=== PATIENT | female | born 1995 | race Two or more races ===

== ENCOUNTER 2016-09-20 23:02 | Emergency (ER) | payer OTHER ==
[2016-09-20 23:20] VITALS: BP 136/84; PULSE 82; TEMP 97.9; BMI 34.1
--- NOTE | 2016-09-20 23:38 | PDOC ---
[id number] No Limitations - History of Present Illness Initial Comments: 09/20/16 23:56 The patient is a 21 year old female, A0, with a significant past medical history of asthma, cholelithiasis, anemia, and fatty liver infiltrates, who presents to the emergency department with RUQ abdominal pain and nausea for a few days. The patient describes the abdominal pain as constant and localized to right upper quadrants and radiated to her chest. She also notes that over the past couple of days she has not been "feeling herself" and has been feeling lightheaded, as if she's going to pass out, and her feet hurt a lot. She notes that her LMP was 08/20. She reports having the flu in 07/2016. She denies shortness of breath, headache and dizziness. She denies fever, chills , diarrhea and constipation. She denies dysuria, frequency, urgency and hematuria. FMH: liver problems Allergies: NKA Social hx: smoker (2 cigarettes a day) PSH: , cholecystectomy (03/2016) PCP - Dr. Nathaniel Montes ACADEMIC SUPPORT DIRECTOR - Dr. Pollock <Edie Shelton - Last Filed: 09/21/16 00:39> <Mary Rodriges - Last Filed: 09/21/16 02:27> - General Chief Complaint: Pain Stated Complaint: RT SIDE ABD PAIN/LOWER BACK PAIN Time Seen by Provider: 09/20/16 23:38 Past History <Edie Shelton - Last Filed: 09/21/16 00:39> - Past Medical History Asthma: Yes (last attack summer 2014) Cancer: No Cardiac Disorders: No Diabetes: No HTN: No Liver Disease: Yes Seizures: No Thyroid Disease: No - Surgical History Cholecystectomy: Yes - Reproductive History (#): 2 Para: 1 Cervical CA: No Dysfunctional Uterine Bleeding: No Ectopic : No Endometrial CA: No Polycystic Ovaries: No Therapeutic (s) & number: No Tubal Ligation: No Spontaneous : 0 - Immunization History Immunization Up to Date: Yes - Psycho/Social/Smoking Cessation Hx Anxiety: No Suicidal Ideation: No Smoking History: Current some day smoker Have you smoked in the past 12 months: Yes Number of Cigarettes Smoked Daily: 5 Information on smoking cessation initiated: No Hx Alcohol Use: No Drug/Substance Use Hx: No Substance Use Type: None Hx Substance Use Treatment: No <Mary Rodriges - Last Filed: 09/21/16 02:27> - Past Medical History Allergies/Adverse Reactions: Allergies Allergy/AdvReac Type Severity Reaction Status Date / Time No Known Allergies Allergy Verified 09/20/16 23:17 Home Medications: Ambulatory Orders NK [No Known Home Medication] 09/20/16 Abd/GI Specific PMHX - Complaint Specific PMHX Colitis: No Diverticulitis: No Gall Bladder Disease: No GERD: No Hepatitis: No Irritable Bowel Synd (IBS): No Pancreatitis: No GI Ulcer Disease: No <Mary Rodriges - Last Filed: 09/21/16 02:27> Review of Systems - Review of Systems Able to Perform ROS?: Yes Comments:: 09/20/16 23:56 CONSTITUTIONAL: Absent: fever, chills, diaphoresis, generalized weakness, malaise, loss of appetite HEENT: Absent: rhinorrhea, nasal congestion, throat pain, throat swelling, difficulty swallowing, mouth swelling, ear pain, eye pain, visual Changes CARDIOVASCULAR: Absent: chest pain, syncope, palpitations, irregular heart rate, lightheadedness , peripheral edema RESPIRATORY: Absent: cough, shortness of breath, dyspnea with exertion, orthopnea, wheezing, stridor, hemoptysis GASTROINTESTINAL: PresentL abdominal pain, nausea Absent: abdominal distension, vomiting, diarrhea, constipation, melena, hematochezia GENITOURINARY: Absent: dysuria, frequency, urgency, hesitancy, hematuria, flank pain, genital pain MUSCULOSKELETAL: Absent: myalgia, arthralgia, joint swelling SKIN: Absent: rash, itching, pallor HEMATOLOGIC/IMMUNOLOGIC: Absent: easy bleeding, easy bruising, lymphadenopathy, frequent infections ENDOCRINE: Absent: unexplained weight gain, unexplained weight loss, heat intolerance, cold intolerance NEUROLOGIC: Absent: headache, focal weakness or paresthesias, dizziness, unsteady gait, seizure, mental status changes, bladder or bowel incontinence PSYCHIATRIC: Absent: anxiety, depression, suicidal or homicidal ideation, hallucinations. <Edie Shelton - Last Filed: 09/21/16 00:39> *Physical Exam - Vital Signs Last Vital Signs Temp Pulse Resp BP Pulse Ox 97.9 F 82 14 136/84 100 09/20/16 23:18 09/20/16 23:18 09/20/16 23:18 09/20/16 23:18 09/20/16 23:18 - Physical Exam Comments: 09/20/16 23:57 GENERAL: Well developed, well nourished. Awake and alert. No acute distress. HEENT: Normocephalic, atraumatic. PERRLA, EOMI. No conjunctival pallor. Sclera are non- icteric. Moist mucous membranes. Oropharynx is clear. NECK: Supple. Full ROM. No JVD. Carotid pulses 2+ and symmetric, without bruits. No thyromegaly. No lymphadenopathy. CARDIOVASCULAR: Regular rate and rhythm. No murmurs, rubs, or gallops. Distal pulses are 2+ and symmetric. PULMONARY: No evidence of respiratory distress. Lungs clear to auscultation bilaterally. No wheezing, rales or rhonchi. ABDOMINAL: +RUQ tenderness upon palpation. No lower abdominal pain. Soft. Non-distended. No rebound or guarding. No organomegaly. Normoactive bowel sounds. MUSCULOSKELETAL Normal range of motion at all joints. No bony deformities or tenderness. No CVA tenderness. EXTREMITIES: No cyanosis. No clubbing. No edema. No calf tenderness. SKIN: Warm and dry. Normal capillary refill. No rashes. No jaundice. NEUROLOGICAL: Alert, awake, appropriate. Cranial nerves 2-12 intact. No deficits to light touch and temperature in face, upper extremities and lower extremities. No motor deficits in the in face, upper extremities and lower extremities. Normoreflexic in the upper and lower extremities. Normal speech. Toes are down-going bilaterally. Gait is normal without ataxia. PSYCHIATRIC: Cooperative. Good eye contact. Appropriate mood and affect. <Edie Shelton - Last Filed: 09/21/16 00:39> - Vital Signs Last Vital Signs Temp Pulse Resp BP Pulse Ox 97.9 F 82 14 136/84 100 09/20/16 23:18 09/20/16 23:18 09/20/16 23:18 09/20/16 23:18 09/20/16 23:18 <Mary Rodriges - Last Filed: 09/21/16 02:27> ED Treatment Course - RADIOLOGY Radiology Studies Ordered: 09/21/16 00:39 EXAM: ULTRASOUND ABDOMEN INCOMPLETE Borderline hepatomegaly. Cholecystectomy. Unremarkable right kidney and visualized aorta and pancreas. No biliary dilatation. No visible choledocholithiasis. Reported by Julia Henao M.D. from Imaging cotton picker <Edie Shelton - Last Filed: 09/21/16 00:39> - LABORATORY CBC & Chemistry Diagram: 09/21/16 00:40 09/21/16 00:40 <Mary Rodriges - Last Filed: 09/21/16 02:27> Medical Decision Making - Medical Decision Making 09/21/16 02:25 21-year-old female who is has some right upper quadrant pain and some nausea recently. Her last menstrual period was in July. - She denied fever or chills or vomiting or diarrhea. She has no URI symptoms She had a cholecystectomy in the past My initial concern was that she had choledocholithiasis, however, ultrasound of the abdomen did not show any evidence of that. It was an unremarkable right upper quadrant ultrasound. She had negative test UA was negative LFTs were within normal limits Patient discharged home with recommendations to take Zantac or Maalox over-the- counter <Mary Rodriges - Last Filed: 09/21/16 02:27> *DC/Admit/Observation/Transfer - Attestations Scribe Attestion: 09/20/16 23:57 Documentation prepared by SONU Taylor, acting as biomedical electronics technician for Mary Rodriges MD. <Edie Shelton - Last Filed: 09/21/16 00:39> <Mary Rodriges - Last Filed: 09/21/16 02:27> Diagnosis at time of Disposition: Dyspepsia - Discharge Dispostion Disposition: HOME Condition at time of disposition: Stable - Patient Instructions Printed Discharge Instructions: DI for Epigastric Pain Additional Instructions: please followup with your regular doctor You may want to try maalox over the counter or zantac for your upper abdominal discomfort -please return for vomiting,increasing abdominal pain or fever
[2016-09-21 00:37] LABS: URINE APPEARANCE SLCLOUDY; URINE BILIRUBIN NEGATIVE (NEGATIVE); URINE BLOOD NEGATIVE (NEGATIVE); URINE COLOR STRAW; URINE GLUCOSE (UA) NEGATIVE (NEGATIVE); URINE KETONE NEGATIVE (NEGATIVE); URINE LEUK ESTERASE NEGATIVE (NEGATIVE); URINE NITRITE NEGATIVE (NEGATIVE); URINE PROTEIN NEGATIVE (NEGATIVE); URINE UROBILINOGEN NEGATIVE E.U./dl (0.2-1.0)
[2016-09-21 01:03] LABS: BASOPHIL 2.5 % (0-2.0); EOSINOPHIL 2.2 % (0-4.5); MCH 26.9 pg (25.7-33.7); MCHC 32.8 g/dl (32.0-36.0); MEAN CELL VOLUME 82.2 fl (80-96); MEAN PLT VOLUME 8.7 fl (7.5-11.1); NEUTROPHILS 38.7 % (42.8-82.8); PLATELET COUNT 261 K/MM3 (134-434); RDW 13.9 % (11.6-15.6); WHITE BLOOD COUNT 7.3 K/mm3 (4.0-10.0)
[2016-09-21 01:48] LABS: ALK PHOS 50 U/L (45-117); ANION GAP 11 (8-16); BILIRUBIN,TOTAL 0.2 mg/dL (0.2-1.0); CALCIUM 9.1 mg/dL (8.5-10.1); CO2 26 mmol/L (21-32); CREATININE 0.8 mg/dL (0.55-1.02); GLUCOSE,RANDOM 77 mg/dL (74-106); SGOT/AST 19 U/L (15-37); SGPT/ALT 28 U/L (12-78); TOT PROT 7.9 g/dl (6.4-8.2)
== END 2016-09-21 02:07 | disposition home or self-care (01) ==
LOC: JER 23:02
DX: R10.13 Epigastric pain (principal)
CPT/HCPCS: 36415; 76705-TC; 80053; 81003; 84703; 85025; 99281-25

== ENCOUNTER 2016-12-08 13:14 | Emergency (ER) | payer OTHER ==
[2016-12-08 13:24] VITALS: BP 115/70; PULSE 88; TEMP 98.2; BMI 34.3
--- NOTE | 2016-12-08 14:50 | PDOC ---
History of Present Illness - General Chief Complaint: Pain, Acute Stated Complaint: PAIN/ JOINTS, LEGS hx of DVT Time Seen by Provider: 12/08/16 14:23 History Source: Patient Exam Limitations: No Limitations - History of Present Illness Initial Comments: 12/08/16 14:47 Patient here with complaints of bilateral leg weakness. States status post gallbladder removal last summer in March had a consequence of a DVT but is uncertain which leg was to be taking some medication but is uncertain as to the name and stopped taking it over a month ago. had an appointment with her private physician but missed that appointment in August. Is a very poor historian, is uncertain as to medications she is taking, hasn't been compliant with medical exams or appointment . Denies swelling to her legs, denies any redness ,cording or exquisite tenderness although feels some mild weakness. Denies numbness or tingling to hands, no recent injury or back injury. No fevers, no recent illness, no excessive exercise changes 12/08/16 14:48 12/08/16 14:50 12/08/16 14:53 12/08/16 15:15 Timing/Duration: reports: just prior to arrival, changing over time Severity: Yes: moderate Location: reports: extremities (ilateral legs ) Respiratory Risk Factors: reports: no cause identified Associated Symptoms: denies: denies symptoms Past History - Travel Traveled outside of the country in the last 30 days: No Close contact w/someone who was outside of country & ill: No - Past Medical History Allergies/Adverse Reactions: Allergies Allergy/AdvReac Type Severity Reaction Status Date / Time No Known Allergies Allergy Verified 12/08/16 13:24 Home Medications: Ambulatory Orders Naproxen Sodium [Flanax] 440 mg PO Q8H PRN #30 tablet 12/08/16 Asthma: Yes (last attack summer 2014) Cancer: No Cardiac Disorders: No Diabetes: No HTN: No Liver Disease: Yes Seizures: No Thyroid Disease: No Other medical history: possible dvt in past - Surgical History Cholecystectomy: Yes - Reproductive History (#): 2 Para: 1 Cervical CA: No Dysfunctional Uterine Bleeding: No Ectopic : No Endometrial CA: No Polycystic Ovaries: No Therapeutic (s) & number: No Tubal Ligation: No Spontaneous : 0 - Immunization History Immunization Up to Date: Yes - Psycho/Social/Smoking Cessation Hx Anxiety: No Suicidal Ideation: No Smoking History: Never smoked Have you smoked in the past 12 months: Yes Number of Cigarettes Smoked Daily: 5 Information on smoking cessation initiated: No Hx Alcohol Use: No Drug/Substance Use Hx: No Substance Use Type: None Hx Substance Use Treatment: No Review of Systems - Review of Systems Able to Perform ROS?: Yes Is the patient limited Occitan proficient: Yes Constitutional: Yes: Symptoms Reported, See HPI, Chills, Malaise. No: Fever, Weakness HEENTM: Yes: See HPI. No: Symptoms Reported, Eye Pain Respiratory: Yes: See HPI. No: Symptoms reported, Cough, Shortness of Breath Musculoskeletal: Yes: Symptoms Reported, See HPI, Joint Swelling Integumentary: Yes: See HPI. No: Symptoms Reported, Bruising Neurological: Yes: Symptoms reported All Other Systems: Reviewed and Negative *Physical Exam - Vital Signs Last Vital Signs Temp Pulse Resp BP Pulse Ox 98.2 F 88 18 115/70 99 12/08/16 13:22 12/08/16 13:22 12/08/16 13:22 12/08/16 13:22 12/08/16 13:22 - Physical Exam General Appearance: Yes: Nourished, Appropriately Dressed. No: Apparent Distress HEENT: positive: JOSE EDUARDO, Normal ENT Inspection, TMs Normal, Pharynx Normal Neck: positive: Supple. negative: Tender Respiratory/Chest: positive: Lungs Clear, Normal Breath Sounds. negative: Respiratory Distress Musculoskeletal: positive: Normal Inspection. negative: CVA Tenderness, Decreased Range of Motion, Muscle Spasm, Vertebral Tenderness Extremity: positive: Normal Capillary Refill, Normal Range of Motion, Other ( ambulatory without limp or unsteadiness). negative: Delayed Capillary Refill, Pedal Edema, Swelling, Calf Tenderness, Erythema, Inflammation Integumentary: positive: Normal Color, Ecchymosis. negative: Pale Neurologic: positive: swimmer II-XII NML intact, Fully Oriented, Alert, Normal Mood/ Affect, Normal Response, Motor Strength 12/31 Medical Decision Making - Medical Decision Making 12/08/16 15:40 Leg pain and general malaise. Encourage patient to follow-up with PMD sooner than December 31 for thorough physical evaluation. Return to emergency department for swelling, redness, tenderness or, worsen pain in legs *DC/Admit/Observation/Transfer Diagnosis at time of Disposition: Leg pain Qualifiers: Laterality: bilateral Qualified Code(s): M79.604 - Pain in right leg - Discharge Dispostion Disposition: HOME Condition at time of disposition: Stable Admit: No - Prescriptions Prescriptions: Naproxen Sodium [Flanax] 440 mg PO Q8H PRN #30 tablet PRN Reason: Pain - Referrals Referrals: Grecia Bhardwaj MD [Primary Care Provider] - - Patient Instructions Printed Discharge Instructions: DI for Leg Pain Additional Instructions: Rest, ice to area on and off for 15 minutes 4-6 times a day Avoid heavy lifting or exercise until pain and swelling is resolved or until further directed Keep area highly elevated to reduce swelling Followup with orthopedist in one to 2 days if not improving, if significantly improved may wait one week for followup with orthopedist May use ibuprofen 2-200 mg tablets every 6 hours as needed for pain/ or Naprosyn 220mg- 2 tabs every 8 hours as needed Patient to keep appointment with PMD for thorough physical evaluation with possible inclusion of lab evaluation/checking for arthritic problems.
== END 2016-12-08 15:48 | disposition home or self-care (01) ==
LOC: JERFT 13:14
DX: M62.81 Muscle weakness (generalized) (principal); R53.81 Other malaise; M79.604 Pain in right leg; M79.605 Pain in left leg
CPT/HCPCS: 84703; 99281-25

== ENCOUNTER 2016-12-13 01:32 | Emergency (ER) | payer OTHER ==
[2016-12-13 01:48] VITALS: BP 144/91; PULSE 92; TEMP 98.8; BMI 34.3
[2016-12-13 02:11] LABS: URINE APPEARANCE CLEAR; URINE BILIRUBIN NEGATIVE (NEGATIVE); URINE BLOOD NEGATIVE (NEGATIVE); URINE COLOR LTYELLOW; URINE GLUCOSE (UA) NEGATIVE (NEGATIVE); URINE KETONE NEGATIVE (NEGATIVE); URINE LEUK ESTERASE NEGATIVE (NEGATIVE); URINE NITRITE NEGATIVE (NEGATIVE); URINE PROTEIN NEGATIVE (NEGATIVE); URINE UROBILINOGEN NEGATIVE E.U./dl (0.2-1.0)
[2016-12-13 02:21] LABS: BASOPHIL 0.4 % (0-2.0); EOSINOPHIL 2.3 % (0-4.5); MCH 26.8 pg (25.7-33.7); MCHC 32.7 g/dl (32.0-36.0); MEAN CELL VOLUME 81.9 fl (80-96); MEAN PLT VOLUME 8.4 fl (7.5-11.1); NEUTROPHILS 50.3 % (42.8-82.8); PLATELET COUNT 237 K/MM3 (134-434); RDW 13.5 % (11.6-15.6); WHITE BLOOD COUNT 7.4 K/mm3 (4.0-10.0)
--- NOTE | 2016-12-13 02:29 | PDOC ---
History of Present Illness - General History Source: Patient Exam Limitations: No Limitations - History of Present Illness Initial Comments: 12/13/16 02:42 The patient is a 21 year old female, A0, with a significant past medical history of asthma, cholelithiasis, anemia, and fatty liver infiltrates, who presents to the emergency department with RLQ abdominal pain and nausea. She denies any vomiting. She states that she never experienced this before. Patient states that her last bowel movement was this AM. She reports dysuria. She denies shortness of breath, headache and dizziness. She denies fever, chills , diarrhea, hematochezia and constipation. She denies frequency, urgency and hematuria. FMH: liver problems Allergy: NKA SH: smoker (2 cigarettes a day) PSH: , cholecystectomy (03/2016) PCP - Dr. Nathaniel Montes LLAMA FARMER - Dr. Pollock <Edie Shelton - Last Filed: 12/13/16 04:48> <Tiarra Mendez - Last Filed: 12/13/16 05:24> - General Chief Complaint: Pain, Acute Stated Complaint: RT SIDE ABD PAIN Time Seen by Provider: 12/13/16 01:36 Past History <Edie Shelton - Last Filed: 12/13/16 04:48> - Past Medical History Asthma: Yes (last attack summer 2014) Cancer: No Cardiac Disorders: No Diabetes: No HTN: No Liver Disease: Yes Seizures: No Thyroid Disease: No - Surgical History Cholecystectomy: Yes - Reproductive History (#): 2 Para: 1 Cervical CA: No Dysfunctional Uterine Bleeding: No Ectopic : No Endometrial CA: No Polycystic Ovaries: No Therapeutic (s) & number: No Tubal Ligation: No Spontaneous : 0 - Immunization History Immunization Up to Date: Yes - Psycho/Social/Smoking Cessation Hx Anxiety: No Suicidal Ideation: No Smoking History: Never smoked Have you smoked in the past 12 months: No Number of Cigarettes Smoked Daily: 5 Information on smoking cessation initiated: No Hx Alcohol Use: No Drug/Substance Use Hx: No Substance Use Type: None Hx Substance Use Treatment: No <Tiarra Mendez - Last Filed: 12/13/16 05:24> - Past Medical History Allergies/Adverse Reactions: Allergies Allergy/AdvReac Type Severity Reaction Status Date / Time No Known Allergies Allergy Verified 12/13/16 01:45 Home Medications: Ambulatory Orders NK [No Known Home Medication] 12/13/16 Review of Systems - Review of Systems Able to Perform ROS?: Yes Comments:: 12/13/16 02:42 GENERAL/CONSTITUTIONAL: No fever or chills. No weakness. HEAD, EYES, EARS, NOSE AND THROAT: No change in vision. No ear pain or discharge. No sore throat. CARDIOVASCULAR: No chest pain or shortness of breath. RESPIRATORY: No cough, wheezing, or hemoptysis. GASTROINTESTINAL: +nausea, +RLQ pain. No vomiting, diarrhea or constipation. GENITOURINARY: No dysuria, frequency, or change in urination. MUSCULOSKELETAL: No joint or muscle swelling or pain. No neck or back pain. SKIN: No rash NEUROLOGIC: No headache, vertigo, loss of consciousness, or change in strength/ sensation. ENDOCRINE: No increased thirst. No abnormal weight change. HEMATOLOGIC/LYMPHATIC: No anemia, easy bleeding, or history of blood clots. ALLERGIC/IMMUNOLOGIC: No hives or skin allergy. <Edie Shelton - Last Filed: 12/13/16 04:48> *Physical Exam - Vital Signs Last Vital Signs Temp Pulse Resp BP Pulse Ox 98.8 F 92 H 20 144/91 100 12/13/16 01:46 12/13/16 01:46 12/13/16 01:46 12/13/16 01:46 12/13/16 01:46 - Physical Exam Comments: 12/13/16 02:43 GENERAL: Awake, alert, and fully oriented, in no acute distress HEAD: No signs of trauma EYES: PERRLA, EOMI, sclera anicteric, conjunctiva clear ENT: Auricles normal inspection, hearing grossly normal, nares patent, oropharynx clear without exudates. Moist mucosa NECK: Normal ROM, supple, no lymphadenopathy, JVD, or masses LUNGS: Breath sounds equal, clear to auscultation bilaterally. No wheezes, and no crackles HEART: Regular rate and rhythm, normal S1 and S2, no murmurs, rubs or gallops ABDOMEN: +obese, +RLQ tenderness upon deep palpation, +gassy abdomen. Soft, normoactive bowel sounds. No guarding, no rebound. No masses EXTREMITIES: Normal range of motion, no edema. No clubbing or cyanosis. No cords, erythema, or tenderness NEUROLOGICAL: Cranial nerves II through XII grossly intact. Normal speech, normal gait SKIN: Warm, Dry, normal turgor, no rashes or lesions noted. <Edie Shelton - Last Filed: 12/13/16 04:48> - Vital Signs Last Vital Signs Temp Pulse Resp BP Pulse Ox 98.8 F 92 H 20 144/91 100 12/13/16 01:46 12/13/16 01:46 12/13/16 01:46 12/13/16 01:46 12/13/16 01:46 <Tiarra Mendez - Last Filed: 12/13/16 05:24> ED Treatment Course - LABORATORY CBC & Chemistry Diagram: 12/13/16 02:00 12/13/16 02:00 - ADDITIONAL ORDERS Additional order review: Laboratory Results 12/13/16 01:50 Urine Color Ltyellow Urine Appearance Clear Urine pH 6.0 Ur Specific [place] 1.021 Urine Protein Negative Urine Glucose (UA) Negative Urine Ketones Negative Urine Blood Negative Urine Nitrite Negative Urine Bilirubin Negative Urine Urobilinogen Negative Ur Leukocyte Esterase Negative Urine HCG, Qual Negative 12/13/16 02:00 RBC 4.58 MCV 81.9 MCHC 32.7 RDW 13.5 MPV 8.4 Neutrophils % 50.3 D Lymphocytes % 41.2 H D Monocytes % 5.8 Eosinophils % 2.3 Basophils % 0.4 - RADIOLOGY Radiology Studies Ordered: 12/13/16 04:49 THIS IS A PRELIMINARYREPORT FROM IMAGING DAY CARE SUPERVISOR EXAM: CT abdomen and pelvis without contrast FINDINGS: Lung bases are clear. The visualized cardiac chambers are normal size and configuration. Status post cholecystectomy the biliary duct dilation. Normal liver, gallbladder, pancreas, spleen, adrenal glands and kidneys. The stomach and abdominal small and large bowel are normal. There is no aortic aneurysm. There is no significant retroperitoneal lymphadenopathy. The pelvic small and large bowel are normal. The appendix is normal. The uterus and adnexal structures are normal. Urinary bladder is unremarkable. There is no significant pelvic free fluid. No discrete pelvic lymphadenopathy is identified. No evidence of acute pathology. IMPRESSION: No localizing signs for acute pathology. THIS DOCUMENT HAS BEEN ELECTRONICALLY SIGNED Steven Orona MD <Edie Shelton - Last Filed: 12/13/16 04:48> - LABORATORY CBC & Chemistry Diagram: 12/13/16 02:00 12/13/16 02:00 - ADDITIONAL ORDERS Additional order review: Laboratory Results 12/13/16 01:50 Urine Color Ltyellow Urine Appearance Clear Urine pH 6.0 Ur Specific [place] 1.021 Urine Protein Negative Urine Glucose (UA) Negative Urine Ketones Negative Urine Blood Negative Urine Nitrite Negative Urine Bilirubin Negative Urine Urobilinogen Negative Ur Leukocyte Esterase Negative Urine HCG, Qual Negative <Tiarra Mendez - Last Filed: 12/13/16 05:24> Medical Decision Making - Medical Decision Making 12/13/16 02:33 Pt comes with diffuse lower abdominal pain. She has dysuria. Pt is not and she has normal UA. SHe has pain with palpation of her periumbilical area, LLQ and RLQ. She ate today and had a BM today. She has surgical hx significant for cholecystectomy only. She has no fever . SHe is very gassy. I will do a CT scan to r/o appendicitis. Pt is obese. Pt has a normal CBC. 12/13/16 05:07 Patient Name: Wendy Carson THIS IS A PRELIMINARYREPORT FROM IMAGING DAY CARE SUPERVISOR EXAM: CT abdomen and pelvis without contrast IMAGES: [id number] INDICATION: Rule out ileus, bowel obstruction or appendicitis. DATE OF SERVICE: 2016-12-13 04:00: 41.0 COMPARISON: none FINDINGS: Lung bases are clear. The visualized cardiac chambers are normal size and configuration. Status post cholecystectomy the biliary duct dilation. Normal liver, gallbladder, pancreas, spleen, adrenal glands and kidneys. The stomach and abdominal small and large bowel are normal. There is no aortic aneurysm. There is no significant retroperitoneal lymphadenopathy. The pelvic small and large bowel are normal. The appendix is normal. The uterus and adnexal structures are normal. Urinary bladder is unremarkable. There is no significant pelvic free fluid. No discrete pelvic lymphadenopathy is identified. No evidence of acute pathology. IMPRESSION: No localizing signs for acute pathology. THIS DOCUMENT HAS BEEN ELECTRONICALLY SIGNED Pt has gas and constipation. We will treat with pepcid and maalox. Pt will be advised to eat healthier. 12/13/16 05:14 Pt comes with extreme abd pain after eating rice beans icecream and juice. SHe sounds gassy, but she is writhing in pain. States that she had a normal BM today in the AM. Labs normal; CT no appendicitis or obstruction. Pt is obese. SHe is making poor dietary choices. <Tiarra Mendez - Last Filed: 12/13/16 05:24> *DC/Admit/Observation/Transfer - Attestations Scribe Attestion: 12/13/16 02:44 Documentation prepared by SONU Taylor, acting as medical reimbursement specialist for Tiarra Mendez MD. <Edie Shelton - Last Filed: 12/13/16 04:48> - Discharge Dispostion Admit: No <Tiarra Mendez - Last Filed: 12/13/16 05:24> Diagnosis at time of Disposition: Gas pain, Poor diet - Discharge Dispostion Disposition: HOME Condition at time of disposition: Stable - Referrals Referrals: Grecia Bhardwaj MD [Primary Care Provider] - - Patient Instructions Printed Discharge Instructions: DI for Dyspepsia, Eating a Diet Rich in Fruits and Vegetables, Decreasing Your Triglycerides Through Dietary Changes, The Mediterranean Diet and Good Health, Combination of Diet and Exercise May be Most Effective Weight Loss Tool for, Water Before Meals May Promote Weight Loss
[2016-12-13 02:45] LABS: ALBUMIN 3.6 g/dl (3.4-5.0); ANION GAP 9 (8-16); BILIRUBIN,TOTAL 0.3 mg/dL (0.2-1.0); CALCIUM 8.8 mg/dL (8.5-10.1); CO2 25 mmol/L (21-32); CREATININE 0.8 mg/dL (0.55-1.02); GLUCOSE,RANDOM 90 mg/dL (74-106); SGOT/AST 25 U/L (15-37); SGPT/ALT 30 U/L (12-78); TOT PROT 7.5 g/dl (6.4-8.2)
[2016-12-13 02:46] LABS: ALK PHOS 47 U/L (45-117)
[2016-12-13] MEDS ORDERED: ONDANSETRON 4 MG/2 ML VIAL IVPB ONE (03:20)
[2016-12-13] MEDS ORDERED: morphine CARPU-JECT 2 MG/1 ML DISP.SYRIN IVPUSH ONE (03:20)
[2016-12-13] MEDS ORDERED: ONDANSETRON 4 MG/2 ML VIAL ONE (03:29)
[2016-12-13] MEDS ORDERED: morphine CARPU-JECT 2 MG/1 ML DISP.SYRIN ONE (03:29)
[2016-12-13] MEDS ORDERED: METOCLOPRAMIDE HCL INJECTION 10 MG/2 ML VIAL ONE (03:52)
[2016-12-13] MEDS ORDERED: METOCLOPRAMIDE HCL INJECTION 10 MG/2 ML VIAL IVPB ONE (03:52)
[2016-12-13] MEDS ORDERED: SODIUM CHLORIDE 1,000 ML IV ONE (05:05)
[2016-12-13] MEDS ORDERED: MAG HYDROX/AL HYDROX/SIMETH 30 ML UNIT-DOSE CUP PO ONE (05:09)
[2016-12-13] MEDS ORDERED: RANITIDINE HCL 150 MG TABLET (FP) PO ONE (05:09)
[2016-12-13] MEDS ORDERED: MAG HYDROX/AL HYDROX/SIMETH 30 ML UNIT-DOSE CUP ONE (05:10)
[2016-12-13] MEDS ORDERED: RANITIDINE HCL 150 MG TABLET (FP) ONE (05:10)
== END 2016-12-13 05:21 | disposition home or self-care (01) ==
LOC: JER 01:32
PROC: 3E0337Z Introduction of Electrolytic and Water Balance Substance into Peripheral Vein, Percutaneous Approach (ICD-10-PCS; principal; 2016-12-13)
PROC: 3E033NZ Introduction of Analgesics, Hypnotics, Sedatives into Peripheral Vein, Percutaneous Approach (ICD-10-PCS; 2016-12-13)
PROC: 3E033GC Introduction of Other Therapeutic Substance into Peripheral Vein, Percutaneous Approach (ICD-10-PCS; 2016-12-13)
DX: R14.1 Gas pain (principal); R10.33 Periumbilical pain; J45.909 Unspecified asthma, uncomplicated; D64.9 Anemia, unspecified
CPT/HCPCS: 36415; 74176-TC; 80053; 81003; 84703; 85025; 87491; 87591; 99282-25

== ENCOUNTER 2017-01-26 19:08 | Emergency (ER) | payer OTHER ==
[2017-01-26 19:32] VITALS: BP 135/84; PULSE 92; TEMP 99; BMI 34.1
[2017-01-26] MEDS ORDERED: IBUPROFEN 600 MG TABLET (FP) PO ONE (21:07)
--- NOTE | 2017-01-26 21:10 | PDOC ---
History of Present Illness - General Chief Complaint: Abscess Boil Stated Complaint: ABSCESS BOIL Time Seen by Provider: 01/26/17 20:50 History Source: Patient Exam Limitations: No Limitations - History of Present Illness Initial Comments: 01/26/17 21:04 21 yr female with c/o "pimple" to her right abdomen for one week. Pt states she has fever and chills. No medical history or allergies. no history of MRSA that pt is aware of. Pt denies bite. Severity: Yes: mild Location: reports: torso (abdomen) Past History - Past Medical History Allergies/Adverse Reactions: Allergies Allergy/AdvReac Type Severity Reaction Status Date / Time No Known Allergies Allergy Verified 01/26/17 19:29 Home Medications: Ambulatory Orders Sulfamethoxazole/Trimethoprim [Bactrim Ds -] 1 tab PO BID #14 tablet 01/26/17 Asthma: Yes (last attack summer 2014) Cancer: No Cardiac Disorders: No Diabetes: No HTN: No Liver Disease: Yes Seizures: No Thyroid Disease: No - Surgical History Cholecystectomy: Yes - Reproductive History (#): 2 Para: 1 Cervical CA: No Dysfunctional Uterine Bleeding: No Ectopic : No Endometrial CA: No Polycystic Ovaries: No Therapeutic (s) & number: No Tubal Ligation: No Spontaneous : 0 - Immunization History Immunization Up to Date: Yes - Psycho/Social/Smoking Cessation Hx Anxiety: No Suicidal Ideation: No Smoking History: Never smoked Have you smoked in the past 12 months: No Number of Cigarettes Smoked Daily: 5 Information on smoking cessation initiated: No Hx Alcohol Use: No Drug/Substance Use Hx: No Substance Use Type: None Hx Substance Use Treatment: No Review of Systems - Review of Systems Able to Perform ROS?: Yes Is the patient limited Mohawk proficient: No Constitutional: No: Symptoms Reported HEENTM: No: Symptoms Reported Respiratory: No: Symptoms reported Cardiac (ROS): No: Symptoms Reported ABD/GI: No: Symptoms Reported, Abdominal cramping : No: Symptoms Reported Musculoskeletal: No: Symptoms Reported Integumentary: Yes: Symptoms Reported *Physical Exam - Vital Signs Last Vital Signs Temp Pulse Resp BP Pulse Ox 99.0 F 92 H 16 135/84 100 01/26/17 19:29 01/26/17 19:29 01/26/17 19:29 01/26/17 19:29 01/26/17 19:29 - Physical Exam General Appearance: Yes: Nourished, Appropriately Dressed HEENT: positive: EOMI, JOSE EDUARDO Musculoskeletal: positive: Normal Inspection Extremity: positive: Normal Capillary Refill Integumentary: positive: Other (right abdomen with red raised indurated area 2cm x1cm no fluctuance, scabbed center) Neurologic: positive: Fully Oriented, Alert, Normal Mood/Affect, Normal Response , Motor Strength 5/5 Medical Decision Making - Medical Decision Making 01/26/17 21:06 cc: pimple to abd for one week fever, chills no vomiting took no meds today area is indurated no fluctuance with scabbed center will give motrin dc with bactrim warm moist compresses 01/26/17 21:11 *DC/Admit/Observation/Transfer Diagnosis at time of Disposition: Abscess - Prescriptions Prescriptions: Sulfamethoxazole/Trimethoprim [Bactrim Ds -] 1 tab PO BID #14 tablet - Referrals Referrals: Grecia Bhardwaj MD [Primary Care Provider] - - Patient Instructions Additional Instructions: frequent warm moist compresses to the area of swelling every 3-4hrs for 20 minutes take the antibiotic as prescribed follow with your doctor if no improvement or worse in 48hrs return to ER for any worsening symptoms
[2017-01-26] MEDS ORDERED: IBUPROFEN 400 MG TABLET (FP) PO ONE (21:13)
== END 2017-01-26 21:25 | disposition home or self-care (01) ==
LOC: JERFT 19:08
DX: L02.211 Cutaneous abscess of abdominal wall (principal)
CPT/HCPCS: 99281-25

== ENCOUNTER 2017-02-04 18:55 | Emergency (ER) | payer OTHER ==
[2017-02-04 19:05] VITALS: BP 113/74; PULSE 96; TEMP 98.6; BMI 33.1
--- NOTE | 2017-02-04 19:57 | PDOC ---
History of Present Illness - General Chief Complaint: Revisit,Wound Recheck Stated Complaint: WOUND INFECTION Time Seen by Provider: 02/04/17 19:35 History Source: Patient Exam Limitations: No Limitations - History of Present Illness Initial Comments: 02/04/17 19:52 21-year-old female sent in for evaluation of wound check after completion of antibiotics. Patient states has been seen here for abscess to the right upper quadrant and she was placed on Bactrim. Patient states mild itching discomfort to the wound but denies any radiation of pain, fever, chills, chest pain or shortness of breath. Patient also denies redness, increased drainage, or increased warmth. Timing/Duration: other Severity: mild Associated Symptoms: reports: denies symptoms Past History - Past Medical History Allergies/Adverse Reactions: Allergies Allergy/AdvReac Type Severity Reaction Status Date / Time No Known Allergies Allergy Verified 02/04/17 19:03 Home Medications: Ambulatory Orders Sulfamethoxazole/Trimethoprim [Bactrim Ds -] 1 tab PO BID #14 tablet 01/26/17 Asthma: Yes Cancer: No Cardiac Disorders: No Diabetes: No HTN: No Liver Disease: Yes Seizures: No Thyroid Disease: No - Surgical History Abdominal Surgery: Yes Cholecystectomy: Yes - Reproductive History LMP Normal: Yes Is Patient Now?: No (#): 2 Para: 1 Cervical CA: No Dysfunctional Uterine Bleeding: No Ectopic : No Endometrial CA: No Polycystic Ovaries: No Therapeutic (s) & number: No Tubal Ligation: No Spontaneous : 0 - Immunization History Immunization Up to Date: Yes - Psycho/Social/Smoking Cessation Hx Anxiety: No Suicidal Ideation: No Smoking History: Never smoked Have you smoked in the past 12 months: No Number of Cigarettes Smoked Daily: 5 Hx Alcohol Use: No Drug/Substance Use Hx: No Substance Use Type: None Hx Substance Use Treatment: No Patient Lives Alone: No Lives with/in: spouse/SO Review of Systems - Review of Systems Able to Perform ROS?: Yes Constitutional: No: Symptoms Reported Respiratory: No: Symptoms reported Cardiac (ROS): No: Symptoms Reported ABD/GI: No: Symptoms Reported, Nausea Integumentary: Yes: See HPI *Physical Exam - Vital Signs Last Vital Signs Temp Pulse Resp BP Pulse Ox 98.6 F 96 H 18 113/74 99 02/04/17 19:03 02/04/17 19:03 02/04/17 19:03 02/04/17 19:03 02/04/17 19:03 - Physical Exam General Appearance: Yes: Nourished, Appropriately Dressed. No: Apparent Distress Respiratory/Chest: positive: Chest Tender, Lungs Clear, Normal Breath Sounds. negative: Respiratory Distress, Accessory Muscle Use Cardiovascular: positive: Regular Rhythm, Regular Rate. negative: Murmur Gastrointestinal/Abdominal: positive: Soft. negative: Tenderness Extremity: positive: Normal Capillary Refill Integumentary: positive: Normal Color, Warm, Moist, Other ( noted 0.25 cm pink epitheal open wound to RUQ. Surrounding skin intact. No increased warmth to area ) Neurologic: positive: Motor Strength 5/5 (ambulatory) Medical Decision Making - Medical Decision Making 02/04/17 19:55 Patient here for wound check. Patient states completed Bactrim. Patient has no other complaints except for mild itching discomfort to the area. Patient states has dressing changes at home and recommended to use normal saline to cleanse area versus alcohol wipes secondary to mild irritation from the tape. *DC/Admit/Observation/Transfer Diagnosis at time of Disposition: Visit for wound check - Discharge Dispostion Disposition: HOME Condition at time of disposition: Stable - Referrals Referrals: Grecia Bhardwaj MD [Primary Care Provider] - - Patient Instructions Printed Discharge Instructions: DI for Wound Infection Additional Instructions: Please continue to cleanse wound using sterile water and apply bacitracin with dry sterile dressing. Please change location of take placement secondary to skin irritation. If symptoms of infection such as redness swelling and drainage increase or return please return to the ED.
--- NOTE | 2017-02-08 10:56 | EKG ---
Test Reason : Blood Pressure : / mmHG Vent. Rate : 090 BPM Atrial Rate : 090 BPM P-R Int : 152 ms QRS Dur : 082 ms QT Int : 348 ms P-R-T Axes : 065 078 039 degrees QTc Int : 425 ms NORMAL SINUS RHYTHM POSSIBLE LEFT ATRIAL ENLARGEMENT BORDERLINE ECG WHEN COMPARED WITH ECG OF 11-SEP-2015 08:59, NO SIGNIFICANT CHANGE WAS FOUND Confirmed by LEANDRO BRASHER MD ([id number]) on 02/08/2017 10:56:27 AM Referred By: RADHA Confirmed By:LEANDRO BRASHER MD
== END 2017-02-04 20:09 | disposition home or self-care (01) ==
LOC: JERFT 18:55
DX: Z48.02 Encounter for removal of sutures (principal)
CPT/HCPCS: 93005; 93010; 99281-25

== ENCOUNTER 2017-02-22 07:13 | Emergency (ER) | payer OTHER ==
[2017-02-22 07:32] VITALS: BP 135/81; PULSE 88; TEMP 98.8; BMI 33.3
--- NOTE | 2017-02-22 07:38 | PDOC ---
History of Present Illness - General History Source: Patient Exam Limitations: No Limitations - History of Present Illness Initial Comments: CHIEF COMPLAINT: 22 y/o afebrile female with no significant PMH c/o worsening right leg pain x 1 month. HISTORY OF PRESENT ILLNESS: The patient states for the past 1 month she's had right leg pain that has worsened. She is taking 800mg of ibuprofen once daily with little relief. She states over the past week it has gotten much worse. She states her thigh hurts and sometimes her calf. She denies fall, trauma to leg, numbness/tingling, warmth/redness/swelling to affected leg. She denies cough, hemoptysis, CP, SOB, recent travel. She admits to smoking approximately 5 cigarettes per day and had the Nexplanon control implanted in October. Vital signs on arrival are within normal limits. REVIEW OF SYSTEMS: GENERAL/CONSTITUTIONAL: No fever/chills. No weakness. No weight change. GENITOURINARY: No dysuria, frequency, or change in urination. MUSCULOSKELETAL: +right leg pain. No neck or back pain. SKIN: No rash or easy bruising. NEUROLOGIC: No headache, vertigo, loss of consciousness, or loss of sensation. PHYSICAL EXAM: VITAL_SIGNS: within normal limits GENERAL_APPEARANCE: alert, cooperative, no obvious discomfort. The patient is a morbidly obese ambulatory female with mild limp. MENTAL_STATUS: speech clear, oriented X 3, responds appropriately to questions. NEURO: motor intact and sensory intact in injured extremity. BACK: No back pain with palpation. EXTREMITIES: good pulse in injured extremity. Minimal TTP of distal anterior right thigh. Some right calf pain with palpation with negative Darnell's sign. No edema, erythema or warmth to affected extremity. No crepitus or obvious deformities. No pain with palpation of right tibial plateau. No pain with palpation of right patella or joint line. No leg length discrepancy. No right hip pain. SKIN: warm, dry, good color. <Liz Mei - Last Filed: 02/22/17 09:32> <Jenise García - Last Filed: 02/25/17 08:47> - General Chief Complaint: Pain Stated Complaint: RT LEG PAIN Time Seen by Provider: 02/22/17 07:29 Past History - Past Medical History Asthma: Yes Cancer: No Cardiac Disorders: No Diabetes: No HTN: No Liver Disease: Yes Seizures: No Thyroid Disease: No - Surgical History Abdominal Surgery: Yes Cholecystectomy: Yes - Reproductive History (#): 2 Para: 1 Cervical CA: No Dysfunctional Uterine Bleeding: No Ectopic : No Endometrial CA: No Polycystic Ovaries: No Therapeutic (s) & number: No Tubal Ligation: No Spontaneous : 0 - Immunization History Immunization Up to Date: Yes - Psycho/Social/Smoking Cessation Hx Anxiety: No Suicidal Ideation: No Smoking History: Never smoked Have you smoked in the past 12 months: Yes Number of Cigarettes Smoked Daily: 6 Information on smoking cessation initiated: Yes 'Breaking Loose' booklet given: 02/22/17 Hx Alcohol Use: No Drug/Substance Use Hx: No Substance Use Type: None Hx Substance Use Treatment: No <Liz Mei - Last Filed: 02/22/17 09:32> <Jenise García - Last Filed: 02/25/17 08:47> - Past Medical History Allergies/Adverse Reactions: Allergies Allergy/AdvReac Type Severity Reaction Status Date / Time No Known Allergies Allergy Verified 02/22/17 07:19 Home Medications: Ambulatory Orders Etonogestrel [Nexplanon] 68 mg SQ ASDIR 02/22/17 *Physical Exam - Vital Signs Last Vital Signs Temp Pulse Resp BP Pulse Ox 98.8 F 88 18 135/81 100 02/22/17 07:20 02/22/17 07:20 02/22/17 07:20 02/22/17 07:20 02/22/17 07:20 <Liz Mei - Last Filed: 02/22/17 09:32> - Vital Signs Last Vital Signs Temp Pulse Resp BP Pulse Ox 98.8 F 88 18 135/81 100 02/22/17 07:20 02/22/17 07:20 02/22/17 07:20 02/22/17 07:20 02/22/17 07:20 <Jenise García - Last Filed: 02/25/17 08:47> Medical Decision Making - Medical Decision Making A/P: 22 y/o afebrile female with atraumatic right leg pain x 1 month. Given her smoking history and recent control use will send for ultrasound to r/ o DVT. Right LE ultrasound IMPRESSION: No DVT in the right leg Gave the patient her results. Suggested she f/u with Dr. Rocha if the symptoms continue. Instructed her to take 800mg of motrin every 8 hours with food and apply ice to the affected area. Instructed her to return to the ER with any worsening or concerning symptoms. The patient verbalizes understanding of all instructions, has no further questions and is awaiting discharge. <Liz Mei - Last Filed: 02/22/17 09:32> *DC/Admit/Observation/Transfer <Liz Mei - Last Filed: 02/22/17 09:32> - Attestations Physician Attestion: I reviewed the case with the mid-level practitioner and agree with the mid- level practitioner's assessment, diagnosis and disposition. <Jenise García - Last Filed: 02/25/17 08:47> Diagnosis at time of Disposition: Leg pain Qualifiers: Laterality: right Qualified Code(s): M79.604 - Pain in right leg - Discharge Dispostion Disposition: HOME Condition at time of disposition: Good - Referrals Referrals: Grecia Bhardwaj MD [Primary Care Provider] - Tommie Rocha MD [Staff Physician] - - Patient Instructions Printed Discharge Instructions: DI for Leg Pain Additional Instructions: Discharge Instructions: -The ultrasound of your leg was negative for blood clot -Please take 800mg of Ibuprofen or Motrin every 8 hours with food -Call Dr. Rocha today to schedule a follow up appointment - Post Discharge Activity Work/School Note: Back to Work
== END 2017-02-22 09:48 | disposition home or self-care (01) ==
LOC: JER 07:13
DX: M79.604 Pain in right leg (principal); J45.909 Unspecified asthma, uncomplicated
CPT/HCPCS: 93971-TC; 99282-25

== ENCOUNTER 2017-05-27 00:28 | Emergency (ER) | payer OTHER ==
--- NOTE | 2017-05-27 01:01 | PDOC ---
History of Present Illness - General History Source: Patient Exam Limitations: No Limitations - History of Present Illness Initial Comments: 05/27/17 01:36 The patient is a 22 year old female (), with a significant past medical history of asthma and gallstones, who presents to the emergency department complaining abdominal pain for approximately 2 hours. The patient reports the pain is localized in the right lower quadrant. Patient reports the pain radiates to her belly button. Patient describes her pain as very painful. She reports associated nausea, headache, and loss of appetite. Patient denies any fever, chills, cough, or dizziness. Patient denies any vomiting, diarrhea, or constipation. She denies any vaginal bleeding/discharge, dysuria, hematuria, frequency, or urgency. Patient reports her LMP was 04/14/17. Patient denies any trauma, heavy lifting, recent travel, or sick contacts. Allergies: NKDA Past Surgical History: Cholecystectomy Social History: Non smoker. No ETOH or recreational drug use. <Stevie Moeller - Last Filed: 05/27/17 05:16> - General History Source: Patient <Hayden Woo - Last Filed: 05/27/17 05:40> - General Chief Complaint: Pain Stated Complaint: ABD PAIN/NAUSEA Time Seen by Provider: 05/27/17 01:01 Past History <Stevie Moeller - Last Filed: 05/27/17 05:16> - Past Medical History Asthma: Yes Cancer: No Cardiac Disorders: No Diabetes: No HTN: No Liver Disease: Yes Seizures: No Thyroid Disease: No - Surgical History Abdominal Surgery: Yes Cholecystectomy: Yes - Reproductive History (#): 2 Para: 1 Cervical CA: No Dysfunctional Uterine Bleeding: No Ectopic : No Endometrial CA: No Polycystic Ovaries: No Therapeutic (s) & number: No Tubal Ligation: No Spontaneous : 0 - Immunization History Immunization Up to Date: Yes - Suicide/Smoking/Psychosocial Hx Smoking History: Never smoked Have you smoked in the past 12 months: No Number of Cigarettes Smoked Daily: 5 'Breaking Loose' booklet given: 02/22/17 Hx Alcohol Use: No Drug/Substance Use Hx: No Substance Use Type: None Hx Substance Use Treatment: No <Hayden Woo - Last Filed: 05/27/17 05:40> - Past Medical History Allergies/Adverse Reactions: Allergies Allergy/AdvReac Type Severity Reaction Status Date / Time No Known Allergies Allergy Verified 05/27/17 00:59 Home Medications: Ambulatory Orders Etonogestrel [Nexplanon] 68 mg SQ ASDIR 02/22/17 Dicyclomine HCl [Bentyl] 20 mg PO Q6H #30 tablet 05/27/17 Ibuprofen 800 mg PO TID #30 tablet 05/27/17 Ondansetron [Zofran *Odt*] 4 mg SL TID #30 od.tablet 05/27/17 Review of Systems - Review of Systems Able to Perform ROS?: Yes Comments:: 05/27/17 01:36 CONSTITUTIONAL: Absent: fever, no chills, no fatigue EYES: Absent: visual changes ENT: Absent: ear pain, no sore throat CARDIOVASCULAR: Absent: chest pain, no palpitations RESPIRATORY: Absent: cough, no SOB GI: Present: RLQ pain radiating to the belly button, nausea Absent: no vomiting, no constipation, no diarrhea GENITOURINARY: Absent: dysuria, no frequency, no hematuria, no vaginal bleeding or discharge MUSCULOSKELETAL: Absent: back pain, no arthralgia, no myalgia SKIN: Absent: rash NEURO: Present: headache ENDOCRINE: Present: Loss of appetite. <Stevie Moeller - Last Filed: 05/27/17 05:16> *Physical Exam - Vital Signs Last Vital Signs Temp Pulse Resp BP Pulse Ox 98.6 F 82 14 133/94 100 05/27/17 00:59 05/27/17 00:59 05/27/17 00:59 05/27/17 00:59 05/27/17 00:59 - Physical Exam Comments: 05/27/17 01:37 GENERAL: Well-appearing, well-nourished. Appears uncomfortable. HEENT: Normocephalic, atraumatic. PERRL, EOM intact. CARDIOVASCULAR: Normal S1, S2. Regular rate and rhythm. PULMONARY: Clear to auscultation bilaterally. ABDOMEN: Tenderness to palpation to the RLQ, but no guarding or rebound. Soft, non- distended. EXTREMITIES: Normal ROM in all four extremities. No gross deformities. SKIN: Warm, dry. No rash NEUROLOGICAL: No focal neurological deficits. <Stevie Moeller - Last Filed: 05/27/17 05:16> ED Treatment Course - LABORATORY CBC & Chemistry Diagram: 05/27/17 01:58 05/27/17 01:58 - RADIOLOGY Radiograph Interpretation: 05/27/17 04:38 EXAM: CT Abdomen and Pelvis INTERPRETED BY: Dr. Orona REVIEWED BY: Dr. Woo IMPRESSION: No evidence of acute pathology. Apparent dextrocardia with situs inversus EXAM: Obstetric US INTERPRETED BY: Dr. Orona REVIEWED BY: Dr. Woo IMPRESSION: No IUP identified. No adnexal masses. Differential diagnosis includes early normal , miscarriage or ectopic . Recommend followup sonography and correlation with beta-hCG levels. <Stevie Moeller - Last Filed: 05/27/17 05:16> - LABORATORY CBC & Chemistry Diagram: 05/27/17 01:58 05/27/17 01:58 <Hayden Woo - Last Filed: 05/27/17 05:40> Medical Decision Making - Medical Decision Making 05/27/17 05:40 Dr. Woo: The scribe's documentation has been prepared under my direction and personally reviewed by me in its entirery. I confirm that the note above accurately reflects all work, treatment, procedures, and medical decision making performed by me. <Hayden Woo - Last Filed: 05/27/17 05:40> *DC/Admit/Observation/Transfer - Attestations Scribe Attestion: 05/27/17 01:37 Documentation prepared by Stevie Moeller, acting as medical data analyst for Hayden Woo DO. <Stevie Moeller - Last Filed: 05/27/17 05:16> - Discharge Dispostion Admit: No <Hayden Woo - Last Filed: 05/27/17 05:40> Diagnosis at time of Disposition: Abdominal pain Qualifiers: Abdominal location: generalized Qualified Code(s): R10.84 - Generalized abdominal pain - Discharge Dispostion Disposition: HOME Condition at time of disposition: Improved - Prescriptions Prescriptions: Dicyclomine HCl [Bentyl] 20 mg PO Q6H #30 tablet Ibuprofen 800 mg PO TID #30 tablet Ondansetron [Zofran *Odt*] 4 mg SL TID #30 od.tablet - Referrals Referrals: Grecia Bhardwaj MD [Primary Care Provider] - Robert Gar MD [Staff Physician] - Amaury Mayorga MD [Staff Physician] - - Patient Instructions Printed Discharge Instructions: DI for Abdominal Pain-Adult Additional Instructions: Take medication as directed. Follow up with your primary care doctor or the doctors referred to you in the ER
[2017-05-27 01:17] VITALS: BMI 34.2
[2017-05-27] MEDS ORDERED: morphine CARPU-JECT 2 MG/1 ML DISP.SYRIN IVPUSH ONE ×2 (01:46→02:50)
[2017-05-27] MEDS ORDERED: SODIUM CHLORIDE 1,000 ML IV STA (01:46)
[2017-05-27] MEDS ORDERED: ONDANSETRON 4 MG/2 ML VIAL IVPUSH STA (01:46)
[2017-05-27 01:58] LABS: URINE APPEARANCE CLEAR; URINE BILIRUBIN NEGATIVE (NEGATIVE); URINE BLOOD NEGATIVE (NEGATIVE); URINE COLOR LTYELLOW; URINE GLUCOSE (UA) NEGATIVE (NEGATIVE); URINE KETONE NEGATIVE (NEGATIVE); URINE LEUK ESTERASE NEGATIVE (NEGATIVE); URINE NITRITE NEGATIVE (NEGATIVE); URINE PROTEIN NEGATIVE (NEGATIVE); URINE UROBILINOGEN NEGATIVE mg/dL (0.2-1.0)
[2017-05-27] MEDS ORDERED: ONDANSETRON 4 MG/2 ML VIAL ONE (02:06)
[2017-05-27] MEDS ORDERED: morphine CARPU-JECT 10 MG/1 ML DISP.SYRIN ONE (02:06)
[2017-05-27 02:10] LABS: BASOPHIL 0.5 % (0-2.0); EOSINOPHIL 2.4 % (0-4.5); MCH 27.4 pg (25.7-33.7); MCHC 33.3 g/dl (32.0-36.0); MEAN CELL VOLUME 82.3 fl (80-96); MEAN PLT VOLUME 8.3 fl (7.5-11.1); NEUTROPHILS 38.3 % (42.8-82.8); PLATELET COUNT 263 K/MM3 (134-434); RDW 13.6 % (11.6-15.6); WHITE BLOOD COUNT 7.4 K/mm3 (4.0-10.0)
[2017-05-27 02:34] LABS: INR 1.05 (0.82-1.09); PROTHROMBIN TIME (PATIENT) 11.6 SEC (9.98-11.88)
[2017-05-27 02:37] LABS: ANION GAP 5 (8-16); BILIRUBIN,TOTAL 0.5 mg/dL (0.2-1.0); CALCIUM 8.9 mg/dL (8.5-10.1); CO2 28 mmol/L (21-32); CREATININE 0.8 mg/dL (0.55-1.02); GLUCOSE,RANDOM 97 mg/dL (74-106); MAGNESIUM 2.4 mg/dL (1.8-2.4); SGOT/AST 14 U/L (15-37); SGPT/ALT 25 U/L (12-78)
[2017-05-27 02:38] LABS: ALK PHOS 52 U/L (45-117)
[2017-05-27] MEDS ORDERED: morphine CARPU-JECT 4 MG/1 ML DISP.SYRIN ONE (02:51)
[2017-05-27] MEDS ORDERED: KETOROLAC TROMETHAMINE 30 MG/1 ML VIAL IVPUSH ONE (04:38)
[2017-05-27] MEDS ORDERED: KETOROLAC TROMETHAMINE 30 MG/1 ML VIAL ONE (04:42)
[2017-05-27] MEDS ORDERED: DICYCLOMINE HCL 20 MG TABLET PO ONE (05:40)
[2017-05-27 05:43] VITALS: BP 91/53; PULSE 66; TEMP 98.5
[2017-05-27] MEDS ORDERED: DICYCLOMINE HCL 10 MG CAPSULE ONE (05:48)
== END 2017-05-27 05:54 | disposition home or self-care (01) ==
LOC: JER 00:28
PROC: 3E033NZ Introduction of Analgesics, Hypnotics, Sedatives into Peripheral Vein, Percutaneous Approach (ICD-10-PCS; principal; 2017-05-27)
PROC: 3E0333Z Introduction of Anti-inflammatory into Peripheral Vein, Percutaneous Approach (ICD-10-PCS; 2017-05-27)
DX: R10.84 Generalized abdominal pain (principal)
CPT/HCPCS: 36415; 74177-TC; 76817-TC; 80053; 81003; 83690; 83735; 84703; 85025; 85610; 87086; 96374; 96375; 99282-25

== ENCOUNTER 2017-06-06 23:12 | Emergency (ER) | payer OTHER ==
[2017-06-06 23:23] VITALS: BP 131/76; PULSE 79; TEMP 98.2; BMI 34.9
--- NOTE | 2017-06-07 00:15 | PDOC ---
History of Present Illness - General Chief Complaint: Pain Stated Complaint: PELVIC PAIN Time Seen by Provider: 06/06/17 23:27 History Source: Patient Exam Limitations: No Limitations - History of Present Illness Travel History: No Timing/Duration: reports: changing over time Quality: reports: moderate Abdominal Pain Onset Location: reports: suprapubic Pain Radiation: reports: no radiation Activities at Onset: reports: none Past History - Past Medical History Allergies/Adverse Reactions: Allergies Allergy/AdvReac Type Severity Reaction Status Date / Time No Known Allergies Allergy Verified 06/06/17 23:23 Home Medications: Ambulatory Orders Etonogestrel [Nexplanon] 68 mg SQ ASDIR 02/22/17 Dicyclomine HCl [Bentyl] 20 mg PO Q6H #30 tablet 05/27/17 Ibuprofen 800 mg PO TID #30 tablet 05/27/17 Ondansetron [Zofran *Odt*] 4 mg SL TID #30 od.tablet 05/27/17 Asthma: Yes Cancer: No Cardiac Disorders: No Diabetes: No HTN: No Liver Disease: Yes Seizures: No Thyroid Disease: No - Surgical History Abdominal Surgery: Yes Cholecystectomy: Yes - Reproductive History (#): 2 Para: 1 Cervical CA: No Dysfunctional Uterine Bleeding: No Ectopic : No Endometrial CA: No Polycystic Ovaries: No Therapeutic (s) & number: No Tubal Ligation: No Spontaneous : 0 - Immunization History Immunization Up to Date: Yes - Suicide/Smoking/Psychosocial Hx Smoking History: Never smoked Have you smoked in the past 12 months: Yes Number of Cigarettes Smoked Daily: 5 Information on smoking cessation initiated: No 'Breaking Loose' booklet given: 02/22/17 Hx Alcohol Use: No Drug/Substance Use Hx: No Substance Use Type: None Hx Substance Use Treatment: No Abd/GI Specific PMHX - Complaint Specific PMHX Colitis: No Diverticulitis: No Gall Bladder Disease: No GERD: No Hepatitis: No Irritable Bowel Synd (IBS): No Pancreatitis: No GI Ulcer Disease: No Review of Systems - Review of Systems Able to Perform ROS?: Yes Is the patient limited Korean proficient: No Constitutional: No: Symptoms Reported, See HPI, Chills, Diaphoresis, Fever, Loss of Appetite, Malaise, Night Sweats, Weakness, Weight Stable, Unintentional Wgt. Loss, Unexplained wgt Loss, Other HEENTM: No: Symptoms Reported, See HPI, Eye Pain, Blurred Vision, Tearing, Recent change in vision, Double Vision, Cataracts, Ear Pain, Ocular Prothesis, Ear Discharge, Nose Pain, Nose Congestion, Tinnitus, Nose Bleeding, Hearing Loss , Throat Pain, Throat Swelling, Mouth Pain, Dental Problems, Difficulty Swallowing, Mouth Swelling, Other Respiratory: No: Symptoms reported, See HPI, Cough, Orthopnea, Shortness of Breath, SOB with Exertion, SOB at Rest, Stridor, Wheezing, Productive cough, Hemoptysis, Other Cardiac (ROS): No: Symptoms Reported, See HPI, Chest Pain, Edema, Irregular Heart Rate, Lightheadedness, Palpitations, Syncope, Chest Tightness, Other ABD/GI: No: Symptoms Reported, See HPI, Abdominal Distended, Abd. Pain w/ defecation, Blood Streaked Bowels, Constipated, Diarrhea, Difficulty Swallowing , Nausea, Poor Appetite, Poor Fluid Intake, Rectal Bleeding, Vomiting, Indigestion, Abdominal cramping, Tarry Stools, Other : Yes: Dysuria, Frequency Musculoskeletal: No: Symptoms Reported, See HPI, Back Pain, Gout, Joint Pain, Joint Swelling, Muscle Pain, Muscle Weakness, Neck Pain, Joint Stiffness, Other Integumentary: No: Symptoms Reported, See HPI, Bruising, Change in Color, Change in Hair/Nails, Dryness, Erythema, Flushing, Lesions, Lumps, Pallor, Pruritus, Rash, Sweating, Other Neurological: No: Symptoms reported, See HPI, Headache, Numbness, Paresthesia, Pre-Existing Deficit, Seizure, Tingling, Tremors, Weakness, Unsteady Gait, Ataxia, Dizziness, Other Endocrine: No: Symptoms Reported, See HPI, Excessive Sweating, Flushing, Intolerance to Cold, Intolerance to Heat, Increased Hunger, Increased Thirst, Increased Urine, Unexplained Weight Gain, Unexplained Weight Loss, Change in Weight, Other *Physical Exam - Vital Signs Last Vital Signs Temp Pulse Resp BP Pulse Ox 98.2 F 79 17 131/76 100 06/06/17 23:20 06/06/17 23:20 06/06/17 23:20 06/06/17 23:20 06/06/17 23:20 - Physical Exam General Appearance: Yes: Nourished HEENT: positive: Normal Voice Neck: positive: Supple Respiratory/Chest: positive: Lungs Clear Cardiovascular: positive: Regular Rhythm, Regular Rate Gastrointestinal/Abdominal: positive: Normal Bowel Sounds, Soft Rectal Exam: positive: deferred Musculoskeletal: positive: Normal Inspection Extremity: positive: Normal Inspection, Normal Range of Motion Integumentary: positive: Normal Color, Warm Neurologic: positive: Fully Oriented, Alert, Motor Strength 5/5 Medical Decision Making - Medical Decision Making 06/07/17 00:53 her LMP was March 14 2017 and in March she had her control method removed by Dr Pollock -she now has c/o dysuria that started today 06/07/17 02:05 serum preg test is negative ua is also negative pelvic exam-no external vescicles,no abscess,no discharge *DC/Admit/Observation/Transfer Diagnosis at time of Disposition: Pain in pelvis - Discharge Dispostion Disposition: HOME Condition at time of disposition: Stable - Patient Instructions Printed Discharge Instructions: DI for Pelvic Pain Additional Instructions: follow up with your bridge painter
[2017-06-07 00:23] LABS: URINE APPEARANCE CLEAR; URINE BILIRUBIN NEGATIVE (NEGATIVE); URINE BLOOD NEGATIVE (NEGATIVE); URINE COLOR LTYELLOW; URINE GLUCOSE (UA) NEGATIVE (NEGATIVE); URINE KETONE NEGATIVE (NEGATIVE); URINE NITRITE NEGATIVE (NEGATIVE); URINE PROTEIN NEGATIVE (NEGATIVE); URINE UROBILINOGEN NEGATIVE mg/dL (0.2-1.0)
[2017-06-07 09:30] LABS: URINE LEUK ESTERASE Negative (NEGATIVE)
== END 2017-06-07 02:24 | disposition home or self-care (01) ==
LOC: JER 23:12 → SUPCPDRO 23:12 → JER 06-07 02:24
DX: R10.2 Pelvic and perineal pain (principal); J45.909 Unspecified asthma, uncomplicated
CPT/HCPCS: 81003; 84703; 99281-25

== ENCOUNTER 2018-11-10 21:41 | Emergency (ER) | payer OTHER ==
[2018-11-10 21:44] VITALS: BP 145/104; PULSE 100; TEMP 98.2; BMI 34.1
[2018-11-10 22:39] LABS: URINE APPEARANCE CLEAR; URINE BILIRUBIN NEGATIVE (<2.0 mg/dL); URINE COLOR YELLOW; URINE GLUCOSE (UA) NEGATIVE (NEGATIVE); URINE KETONE NEGATIVE (NEGATIVE); URINE LEUK ESTERASE NEGATIVE (NEGATIVE); URINE NITRITE NEGATIVE (NEGATIVE); URINE PROTEIN NEGATIVE (NEGATIVE)
[2018-11-10 22:42] LABS: BASO % 0.2 % (0-2.0); HEMATOCRIT 40.6 % (32.4-45.2); HEMOGLOBIN 13.6 GM/dL (10.7-15.3); LYMPH % 42.8 % (8-40); MCH 27.8 pg (25.7-33.7); MCHC 33.5 g/dl (32.0-36.0); MEAN CELL VOLUME 83.2 fl (80-96); MEAN PLT VOLUME 8.2 fl (7.5-11.1); MONO % 4.8 % (3.8-10.2); NEUT % 50.2 % (42.8-82.8); PLATELET COUNT 282 K/MM3 (134-434); RBC 4.89 M/mm3 (3.60-5.2); RDW 13.5 % (11.6-15.6); WHITE BLOOD COUNT 7.1 K/mm3 (4.0-10.0)
--- NOTE | 2018-11-10 23:11 | PDOC ---
History of Present Illness <MendezTiarra zeng - Last Filed: 11/11/18 05:16> - General History Source: Patient Exam Limitations: No Limitations - History of Present Illness Travel History: No Initial Comments: 11/10/18 23:13 Best Contact: PCP: none Pmhx:Asthma Pshx: 2016: Laparoscopic cholecystectomy, 2011; 2016: Allergies: NO KNOWN DRUG ALLERGIES FH:0 Social Hx: Cigarettes/ 5 cigarettes/daily Alcohol/ social Drugs/0 LMP:10/26/2018 23-year-old female presents to the ER complaining of right pelvic pain described as 8/10 sharp nonradiating intermittent discomfort. The pain is exacerbated on movement and alleviated at rest. Patient states while she was on the phone 2 hours ago, she felt an acute pain. Patient denies lifting anything heavy or twisting. Patient denies nausea/vomiting, fever/chills, neck pain/back pains, chest pain, shortness of breath, abdominal pains, flank pains, urinary symptoms. <Arnulfo Sorto - Last Filed: 11/11/18 06:37> - General Chief Complaint: Pain Stated Complaint: ABD PAIN Time Seen by Provider: 11/10/18 22:12 Past History <Tiarra Mendez - Last Filed: 11/11/18 05:16> - Past Medical History Asthma: Yes Cancer: No Cardiac Disorders: No COPD: No Diabetes: No HTN: No Liver Disease: Yes Seizures: Yes (stopped taking meds @ 2013 (on own)) Thyroid Disease: No - Surgical History Abdominal Surgery: Yes Cholecystectomy: Yes - Reproductive History (#): 2 Para: 1 Cervical CA: No Dysfunctional Uterine Bleeding: No Ectopic : No Endometrial CA: No Polycystic Ovaries: No Therapeutic (s) & number: No Tubal Ligation: No Spontaneous : 0 - Immunization History Immunization Up to Date: Yes - Suicide/Smoking/Psychosocial Hx Smoking History: Never smoked Have you smoked in the past 12 months: Yes Number of Cigarettes Smoked Daily: 4 'Breaking Loose' booklet given: 02/22/17 Hx Alcohol Use: No Drug/Substance Use Hx: No Substance Use Type: None Hx Substance Use Treatment: No <Arnulfo Sorto - Last Filed: 11/11/18 06:37> - Past Medical History Allergies/Adverse Reactions: Allergies Allergy/AdvReac Type Severity Reaction Status Date / Time No Known Allergies Allergy Verified 11/10/18 21:44 Home Medications: Ambulatory Orders NK [No Known Home Medication] 11/11/17 Abd/GI Specific PMHX - Complaint Specific PMHX Colitis: No Diverticulitis: No Gall Bladder Disease: No GERD: No Hepatitis: No Irritable Bowel Synd (IBS): No Pancreatitis: No GI Ulcer Disease: No <Arnulfo Sorto - Last Filed: 11/11/18 06:37> Review of Systems - Review of Systems Able to Perform ROS?: Yes Comments:: 11/10/18 23:13 CONSTITUTIONAL: Absent: fever, chills, diaphoresis, generalized weakness, malaise, loss of appetite HEENT: Absent: rhinorrhea, nasal congestion, throat pain, throat swelling, difficulty swallowing, mouth swelling, ear pain, eye pain, visual Changes CARDIOVASCULAR: Absent: chest pain, loss of consciousness, palpitations, irregular heart rate, peripheral edema RESPIRATORY: Absent: cough, shortness of breath, dyspnea with exertion, orthopnea, wheezing, stridor, hemoptysis GASTROINTESTINAL: Absent: abdominal pain, abdominal distension, nausea, vomiting, diarrhea, constipation, melena, hematochezia GENITOURINARY: +right pelvic pain Absent: dysuria, frequency, urgency, hesitancy, hematuria, flank pain, genital pain MUSCULOSKELETAL: Absent: myalgia, arthralgia, joint swelling SKIN: Absent: rash, itching, pallor HEMATOLOGIC/IMMUNOLOGIC: Absent: easy bleeding, easy bruising, lymphadenopathy, frequent infections ENDOCRINE: Absent: unexplained weight gain, unexplained weight loss, heat intolerance, cold intolerance NEUROLOGIC: Absent: headache, focal weakness or paresthesias, dizziness, unsteady gait, seizure, mental status changes, bladder or bowel incontinence Is the patient limited Lithuanian proficient: No <Arnulfo Sorto - Last Filed: 11/11/18 06:37> *Physical Exam - Vital Signs Last Vital Signs Temp Pulse Resp BP Pulse Ox 98.2 F 100 H 18 145/104 H 100 11/10/18 21:43 11/10/18 21:43 11/10/18 21:43 11/10/18 21:43 11/10/18 21:43 <Tiarra Mendez - Last Filed: 11/11/18 05:16> - Vital Signs Last Vital Signs Temp Pulse Resp BP Pulse Ox 98.2 F 100 H 18 145/104 H 100 11/10/18 21:43 11/10/18 21:43 11/10/18 21:43 11/10/18 21:43 11/10/18 21:43 - Physical Exam Comments: 11/10/18 23:13 GENERAL: Well developed, well nourished. Awake and alert. No acute distress. HEENT: Normocephalic, atraumatic. PERRLA, EOMI. No conjunctival pallor. Sclera are non- icteric. Moist mucous membranes. Oropharynx is clear. NECK: Supple. Full ROM. No JVD. Carotid pulses 2+ and symmetric, without bruits. No thyromegaly. No lymphadenopathy. CARDIOVASCULAR: Regular rate and rhythm. No murmurs, rubs, or gallops. Distal pulses are 2+ and symmetric. PULMONARY: No evidence of respiratory distress. Lungs clear to auscultation bilaterally. No wheezing, rales or rhonchi. ABDOMINAL: Soft. Non-tender. Non-distended. No rebound or guarding. No organomegaly. Normoactive bowel sounds. MUSCULOSKELETAL Normal range of motion at all joints. No bony deformities or tenderness. No CVA tenderness. EXTREMITIES: No cyanosis. No clubbing. No edema. No calf tenderness. SKIN: Warm and dry. Normal capillary refill. No rashes. No jaundice. NEUROLOGICAL: Alert, awake, appropriate. Cranial nerves 2-12 intact. No deficits to light touch and temperature in face, upper extremities and lower extremities. No motor deficits in the in face, upper extremities and lower extremities. Normoreflexic in the upper and lower extremities. Normal speech. Toes are down- going bilaterally. Gait is normal without ataxia. PSYCHIATRIC: Cooperative. Good eye contact. Appropriate mood and affect. Neg kernigs Pt refuses to test Brudzinski/ states her neck feels stiff. <Arnulfo Sorto - Last Filed: 11/11/18 06:37> Moderate Sedation - Procedure Monitoring Vital Signs: Procedure Monitoring Vital Signs Temperature 98.2 F 11/10/18 21:43 Pulse Rate 100 H 11/10/18 21:43 Respiratory Rate 18 11/10/18 21:43 Blood Pressure 145/104 H 11/10/18 21:43 O2 Sat by Pulse Oximetry (%) 100 11/10/18 21:43 <Tiarra Mendez - Last Filed: 11/11/18 05:16> - Procedure Monitoring Vital Signs: Procedure Monitoring Vital Signs Temperature 98.2 F 11/10/18 21:43 Pulse Rate 100 H 11/10/18 21:43 Respiratory Rate 18 11/10/18 21:43 Blood Pressure 145/104 H 11/10/18 21:43 O2 Sat by Pulse Oximetry (%) 100 11/10/18 21:43 <Arnulfo Sorto - Last Filed: 11/11/18 06:37> ED Treatment Course - LABORATORY CBC & Chemistry Diagram: 11/10/18 22:00 11/10/18 22:00 - ADDITIONAL ORDERS Additional order review: Laboratory Results 11/10/18 11/10/18 11/10/18 22:00 22:00 22:00 Sodium 139 Potassium 4.0 Chloride 105 Carbon Dioxide 27 Anion Gap 7 L BUN 12 Creatinine 0.8 Creat Clearance w eGFR 88.89 Random Glucose 94 Calcium 9.4 Total Bilirubin 0.1 L AST 18 ALT 25 Alkaline Phosphatase 55 Total Protein 8.0 Albumin 3.9 Beta HCG, Quant < 1.0 Urine Color Yellow Urine Appearance Clear Urine pH 6.0 Ur Specific [place] 1.020 Urine Protein Negative Urine Glucose (UA) Negative Urine Ketones Negative Urine Blood Negative Urine Nitrite Negative Urine Bilirubin Negative Urine Urobilinogen 2.0 H Ur Leukocyte Esterase Negative 11/10/18 22:00 RBC 4.89 MCV 83.2 MCHC 33.5 RDW 13.5 MPV 8.2 Neutrophils % 50.2 Lymphocytes % 42.8 H Monocytes % 4.8 Eosinophils % 2.0 Basophils % 0.2 - Medications Given in the ED: ED Medications Discontinued Medications Generic Name Dose Route Start Last Admin Trade Name Freq PRN Reason Stop Dose Admin Ketorolac Tromethamine 30 mg 11/11/18 00:44 11/11/18 00:58 Toradol Injection - IVPUSH 11/11/18 00:45 30 mg ONCE ONE Administration Ondansetron HCl 4 mg 11/11/18 00:44 11/11/18 00:58 Zofran Injection IVPUSH 11/11/18 00:45 4 mg ONCE ONE Administration <Tiarra Mendez - Last Filed: 11/11/18 05:16> - LABORATORY CBC & Chemistry Diagram: 11/10/18 22:00 11/10/18 22:00 - ADDITIONAL ORDERS Additional order review: Laboratory Results 11/10/18 22:00 Urine Color Yellow Urine Appearance Clear Urine pH 6.0 Ur Specific [place] 1.020 Urine Protein Negative Urine Glucose (UA) Negative Urine Ketones Negative Urine Blood Negative Urine Nitrite Negative Urine Bilirubin Negative Urine Urobilinogen 2.0 H Ur Leukocyte Esterase Negative 11/10/18 22:00 RBC 4.89 MCV 83.2 MCHC 33.5 RDW 13.5 MPV 8.2 Neutrophils % 50.2 Lymphocytes % 42.8 H Monocytes % 4.8 Eosinophils % 2.0 Basophils % 0.2 - RADIOLOGY Radiograph Interpretation: 11/10/18 23:13 CT Abd/Pelvis w/o contrast: No evidence of intestinal obstruction, perforation, colitis, pancreatitis, diverticular disease or an intra-abdominal or pelvic abscess. No free fluid. Small fat-containing umbilical hernia. Impression: No acute intra-abdominal or pelvic findings Transvaginal ultrasound: Normal uterus and endometrium. Small bilateral follicular ovarian cysts. No evidence of ovarian torsion. No abnormal adnexal mass. Small amount of free fluid within the anterior cul-de-sac <Arnulfo Sorto - Last Filed: 11/11/18 06:37> Progress Note - Progress Note Progress Note: Patient adamantly refuses any blood work/coag, CBC, chemistry and adamantly refuses any lumbar puncture. I spoke to the patient in depth regarding bacterial meningitis But patient states she will have to decline follow with her own PMD on Tuesday. Patient signed an AMA stating risk factors as life- threatening which can be fatal or cause hearing loss, shock, kidney failure, seizures, brain damage, memory difficulty. Patient fully understands the risks and complications. Patient's mother also understands <Arnulfo Sorto - Last Filed: 11/11/18 06:37> Medical Decision Making - Medical Decision Making 11/11/18 04:20 Patient Name: ALAINA STUART THIS IS A PRELIMINARY REPORT FROM IMAGING VIDEOTAPE OPERATOR DATE OF SERVICE: 2018-11-11 02:43:02 IMAGES: 558 EXAM: ABDOMEN \T\ PELVIS CT WITH CONTR HISTORY: Lower abdominal pain COMPARISON: None. FINDINGS: Status post cholecystectomy No evidence of renal calculi or obstructive uropathy Normal retrocecal appendix No evidence of intestinal obstruction, perforation, colitis, pancreatitis, diverticular disease, or an intra-abdominal or pelvic abscess No free fluid Small fat-containing umbilical hernia IMPRESSION: 1. No acute intra-abdominal or pelvic findings 11/11/18 05:16 11/11/18 05:19 Patient Name: ALAINA STUART THIS IS A PRELIMINARY REPORT FROM IMAGING VIDEOTAPE OPERATOR DATE OF SERVICE: 2018-11-10 23:33:20 IMAGES: 31 EXAM: TRANSVAGINAL ULTRASOUND US HISTORY: Pelvic pain COMPARISON: None. FINDINGS: Normal uterus and endometrium Small bilateral follicular ovarian cysts No evidence of ovarian torsion No abnormal adnexal mass Small amount of free fluid within the anterior cul-de-sac THIS DOCUMENT HAS BEEN ELECTRONICALLY SIGNED <Tiarra Mendez - Last Filed: 11/11/18 05:16> *DC/Admit/Observation/Transfer <Tiarra Mendez - Last Filed: 11/11/18 05:16> - Discharge Dispostion Decision to Admit order: No <Arnulfo Sorto - Last Filed: 11/11/18 06:37> Diagnosis at time of Disposition: Abdominal pain Qualifiers: Abdominal location: lower abdomen, unspecified Qualified Code(s): R10.30 - Lower abdominal pain, unspecified - Discharge Dispostion Disposition: HOME Condition at time of disposition: Guarded - Referrals Referrals: Lane Sam MD [Staff Physician] - - Patient Instructions Printed Discharge Instructions: DI for Abdominal Pain-Adult Additional Instructions: Follow with your physician or the one listed on the discharge Return back to the ER for severe/persistent or worsening symptoms
[2018-11-10 23:31] LABS: ALBUMIN 3.9 g/dl (3.4-5.0); ALK PHOS 55 U/L (45-117); ANION GAP 7 MMOL/L (8-16); BILIRUBIN,TOTAL 0.1 mg/dL (0.2-1); BLOOD UREA NITROGEN 12 mg/dL (7-18); CALCIUM 9.4 mg/dL (8.5-10.1); CHLORIDE 105 mmol/L (98-107); CO2 27 mmol/L (21-32); CREATININE 0.8 mg/dL (0.55-1.3); GLUCOSE,RANDOM 94 mg/dL (74-106); SGOT/AST 18 U/L (15-37); SGPT/ALT 25 U/L (13-61); SODIUM 139 mmol/L (136-145)
[2018-11-11] MEDS ORDERED: ONDANSETRON 4 MG/2 ML VIAL IVPUSH ONE (00:44)
[2018-11-11] MEDS ORDERED: KETOROLAC TROMETHAMINE 30 MG/1 ML VIAL IVPUSH ONE (00:44)
[2018-11-11] MEDS ORDERED: KETOROLAC TROMETHAMINE 30 MG/1 ML VIAL ONE (00:50)
[2018-11-11] MEDS ORDERED: ONDANSETRON 4 MG/2 ML VIAL ONE (00:50)
[2018-11-11] MEDS ORDERED: morphine CARPU-JECT 4 MG/1 ML DISP.SYRIN IVPUSH ONE (03:27)
[2018-11-11] MEDS ORDERED: morphine SULFATE 4 MG/ML VIAL ONE (04:08)
[2018-11-11] MEDS ORDERED: FAMOTIDINE 20 MG/50 ML IVPB 20 MG/50 ML MG IVPB ONE ×2 (05:24→05:37)
[2018-11-11] MEDS ORDERED: MAG HYDROX/AL HYDROX/SIMETH 30 ML UNIT-DOSE CUP PO ONE (05:24)
[2018-11-11] MEDS ORDERED: MAG HYDROX/AL HYDROX/SIMETH 30 ML UNIT-DOSE CUP ONE (05:37)
== END 2018-11-11 06:16 | disposition home or self-care (01) ==
LOC: JER 21:41
PROC: 3E033GC Introduction of Other Therapeutic Substance into Peripheral Vein, Percutaneous Approach (ICD-10-PCS; principal; 2018-11-10)
PROC: 3E033GC Introduction of Other Therapeutic Substance into Peripheral Vein, Percutaneous Approach (ICD-10-PCS; 2018-11-10)
PROC: 3E033NZ Introduction of Analgesics, Hypnotics, Sedatives into Peripheral Vein, Percutaneous Approach (ICD-10-PCS; 2018-11-10)
PROC: 3E0333Z Introduction of Anti-inflammatory into Peripheral Vein, Percutaneous Approach (ICD-10-PCS; 2018-11-10)
DX: R10.31 Right lower quadrant pain (principal); N83.292 Other ovarian cyst, left side; N83.291 Other ovarian cyst, right side
CPT/HCPCS: 36415; 74177-TC; 76830-TC; 80053; 81003; 84702; 85025; 87086; 96365; 96375; 99281-25

== ENCOUNTER 2019-04-24 22:35 | Emergency (ER) | payer OTHER ==
[2019-04-24 22:43] VITALS: BMI 36.1
--- NOTE | 2019-04-24 23:02 | PDOC ---
History of Present Illness - General Chief Complaint: Headache Stated Complaint: PAIN Time Seen by Provider: 04/24/19 22:55 History Source: Patient - History of Present Illness Initial Comments: 04/24/19 22:57 24 year old female right sided headache, right sided neck pain and right ear pain x 3 days. patient reports that she has been taking ibuprofen at home. + photophobia, + phonophobia, dizziness denies nausea, vomiting, patient reports chills denies fever PMHX:asthma, migraines, and seizures ( currently not on meds, denies recent seizures) Past History - Past Medical History Allergies/Adverse Reactions: Allergies Allergy/AdvReac Type Severity Reaction Status Date / Time No Known Allergies Allergy Verified 04/24/19 22:42 Home Medications: Ambulatory Orders NK [No Known Home Medication] 11/11/17 Asthma: Yes Cancer: No Cardiac Disorders: No COPD: No Diabetes: No HTN: No Liver Disease: Yes Seizures: Yes (stopped taking meds @ 2013 (on own)) Thyroid Disease: No - Surgical History Abdominal Surgery: Yes Cholecystectomy: Yes - Reproductive History (#): 2 Para: 1 Cervical CA: No Dysfunctional Uterine Bleeding: No Ectopic : No Endometrial CA: No Polycystic Ovaries: No Therapeutic (s) & number: No Tubal Ligation: No Spontaneous : 0 - Immunization History Immunization Up to Date: Yes - Suicide/Smoking/Psychosocial Hx Smoking History: Current some day smoker Have you smoked in the past 12 months: Yes Number of Cigarettes Smoked Daily: 4 Information on smoking cessation initiated: No 'Breaking Loose' booklet given: 02/22/17 Hx Alcohol Use: No Drug/Substance Use Hx: No Substance Use Type: None Hx Substance Use Treatment: No Review of Systems - Review of Systems Able to Perform ROS?: Yes Is the patient limited Syriac proficient: No Constitutional: Yes: Chills Neurological: Yes: Headache *Physical Exam - Vital Signs Last Vital Signs Temp Pulse Resp BP Pulse Ox 98.5 F 76 18 123/87 99 04/24/19 22:42 04/24/19 22:42 04/24/19 22:42 04/24/19 22:42 04/24/19 22:42 - Physical Exam General Appearance: Yes: Appropriately Dressed HEENT: positive: Pharyngeal Erythema, Other (PERRLA, TM dulls no erythema + light refle) Respiratory/Chest: positive: Lungs Clear, Normal Breath Sounds Cardiovascular: positive: Regular Rhythm, Regular Rate Musculoskeletal: positive: Normal Inspection Extremity: positive: Normal Capillary Refill, Normal Inspection, Normal Range of Motion Integumentary: positive: Normal Color, Dry, Warm Neurologic: positive: Fully Oriented, Alert, Normal Mood/Affect ED Treatment Course - LABORATORY CBC & Chemistry Diagram: 04/24/19 00:00 04/24/19 00:00 Progress Note - Progress Note Progress Note: A: headache P: labs IVF reglan pain control rapid strep Medical Decision Making - Medical Decision Making 04/25/19 00:50 patient reports that she is feeling better. requesting to be d/ruba home. will give referral for neurology *DC/Admit/Observation/Transfer Diagnosis at time of Disposition: Headache Qualifiers: Headache type: unspecified Headache chronicity pattern: acute headache Intractability: not intractable Qualified Code(s): R51 - Headache - Discharge Dispostion Disposition: HOME - Referrals Referrals: Grecia Bhardwaj MD [Primary Care Provider] - Marcus Warren DO [Staff Physician] - Call tomorrow - Patient Instructions Printed Discharge Instructions: DI for Headache Additional Instructions: It is important that you drink plenty of fluids. Follow-up with a neurologist as soon as possible. You may take ibuprofen every 6 hours as needed for pain. - Post Discharge Activity Forms/Work/School Notes: Back to Work
[2019-04-24] MEDS ORDERED: ACETAMINOPHEN 1000 MG/100 ML VIAL (NON FORMULARY) IVPB ONE (23:03)
[2019-04-24] MEDS ORDERED: SODIUM CHLORIDE 1,000 ML IV STA (23:03)
[2019-04-24] MEDS ORDERED: METOCLOPRAMIDE HCL INJECTION 10 MG/2 ML VIAL IVPB ONE (23:03)
[2019-04-24] MEDS ORDERED: ACETAMINOPHEN INJECTION 100 ML IVPB ONE (23:35)
[2019-04-24] MEDS ORDERED: METOCLOPRAMIDE HCL INJECTION 10 MG/2 ML VIAL ONE (23:35)
[2019-04-24 23:38] LABS: URINE APPEARANCE CLOUDY; URINE BILIRUBIN NEGATIVE (NEGATIVE); URINE COLOR YELLOW; URINE GLUCOSE (UA) NEGATIVE (NEGATIVE); URINE KETONE NEGATIVE (NEGATIVE); URINE LEUK ESTERASE NEGATIVE (NEGATIVE); URINE NITRITE NEGATIVE (NEGATIVE); URINE PROTEIN NEGATIVE (NEGATIVE); URINE UROBILINOGEN 0.2 mg/dL (0.2-1.0)
[2019-04-25 01:05] VITALS: BP 108/75; PULSE 73; TEMP 97.6
== END 2019-04-25 01:00 | disposition home or self-care (01) ==
LOC: JER 22:35
PROC: 3E033NZ Introduction of Analgesics, Hypnotics, Sedatives into Peripheral Vein, Percutaneous Approach (ICD-10-PCS; principal; 2019-04-24)
PROC: 3E033GC Introduction of Other Therapeutic Substance into Peripheral Vein, Percutaneous Approach (ICD-10-PCS; 2019-04-24)
DX: R51 Headache (principal); Z86.69 Personal history of other diseases of the nervous system and sense organs
CPT/HCPCS: 36415; 80053; 81003; 84703; 85025; 87070; 87880; 96374; 96375; 99283-25; J0131; J7030